=== PATIENT | male | born 1995 | race Caucasian/White ===

== ENCOUNTER 2016-10-22 08:58 | Emergency (ER) | payer MEDICAID ==
[~2016-10-22] VITALS: Ht 172.7 cm; Wt 77.3 kg
[2016-10-22] MEDS ORDERED: EMTR1TAB11 PO (09:13)
[2016-10-22] MEDS ORDERED: [UNRECOGNIZED DRUG - OTHER] PO (09:13)
[2016-10-22 11:27] VITALS: BP 140/84
== END 2016-10-22 11:30 | disposition home or self-care (01) ==
LOC: EMS 09:00
DX: L02.31 Cutaneous abscess of buttock (principal); Z76.0 Encounter for issue of repeat prescription; F12.90 Cannabis use, unspecified, uncomplicated
CPT/HCPCS: 99283